=== PATIENT | male | born 1930 | race Caucasian/White ===

== ENCOUNTER 2017-04-13 20:09 | Observation (INO) | payer OTHER ==
[~2017-04-13] VITALS: Ht 185.4 cm; Wt 95.1 kg
[~2017-04-13 20:09] MED LIST: ACET325T14 PO; ALLO300T PO; AMLO5TAB4 PO; CITA40TA5 PO; CYAN10002 IM; DILT360C22 PO; FINA5TAB4 PO; FOLI-17 PO; GLIP2.5T3 PO; LORA-445 PO; LORA0.5T PO; Miscellaneous XX; PROP10TA PO; TAMS0.4C2 PO; TRIA1CAP3 PO; VIT1TABL32 PO; WARF2.5T73 PO
[2017-04-13] MEDS ORDERED: SODIUM CHLORIDE 0.9% 1,000ML IVBOLUS ONE (20:30)
[2017-04-13] MEDS ORDERED: ACETAMINOPHEN 325 MG TABLET PO ONE (20:30)
[2017-04-13] MEDS ORDERED: SODIUM CHLORIDE FLUSH 10ML SYR IVF ONE (20:30)
[2017-04-13] MEDS ORDERED: ONDANSETRON 2MG/ML, 2ML IVPush ONE (20:30)
[2017-04-13] MEDS ORDERED: ONDANSETRON 2MG/ML, 2ML ONE (20:43)
[2017-04-13] MEDS ORDERED: ACETAMINOPHEN 325 MG TABLET ONE (20:43)
[2017-04-13] MEDS ORDERED: PROP10TA PO (21:09)
[2017-04-13] MEDS ORDERED: ALPR0.25 PO (21:09)
[2017-04-13 21:10] LABS: HEMATOCRIT 31.2 % (39.2-51.8); HEMOGLOBIN 10.6 g/dL (13.7-18.0); WHITE BLOOD COUNT 9.6 x10^3/uL (3.4-10)
[2017-04-13] MEDS ORDERED: AMLO5TAB2 PO (21:10)
[2017-04-13 21:23] LABS: ASPARTATE AMINO TRANSFERASE 24 U/L (15-37); BLOOD UREA NITROGEN 25 mg/dL (7-18)
[2017-04-13 22:12] LABS: PATH.CAST-FLAG NOT PRESENT; SPERM-FLAG NOT PRESENT; SRC-FLAG NOT PRESENT; XTAL-FLAG NOT PRESENT; YLC-FLAG NOT PRESENT
[2017-04-13] MEDS ORDERED: CEFTRIAXONE PMX 1GM/50ML 50 ML ONE (22:35)
[2017-04-13] MEDS ORDERED: SODIUM CHLORIDE 0.9% 1,000 ML IV ONE (22:40)
[2017-04-13] MEDS ORDERED: ACETAMINOPHEN 325 MG TABLET PO PRN (23:00)
[2017-04-13] MEDS ORDERED: ONDANSETRON 2MG/ML, 2ML IVPush PRN (23:00)
[2017-04-13] MEDS ORDERED: PROMETHAZINE 25 MG/ML, 1ML IM PRN (23:00)
[2017-04-13] MEDS ORDERED: MORPHINE SULFATE 4 MG/ML, 1ML IVPush PRN (23:00)
[2017-04-13] MEDS ORDERED: SODIUM CHLORIDE FLUSH 10ML SYR IVF PRN (23:00)
[2017-04-13] MEDS ORDERED: CEFTRIAXONE PMX 1GM/50ML 50 ML IV ONE (23:00)
[2017-04-13 23:59] VITALS: BP 131/65
[2017-04-14] VITALS (8 sets, daily range): BP systolic 110–162; BP diastolic 54–76
[2017-04-14] MEDS ORDERED: HEPARIN 5,000 UNITS/ML, 1ML SQ ONE (08:30)
[2017-04-14] MEDS ORDERED: DOCUSATE 100 MG CAPSULE PO PRN (08:30)
[2017-04-14] MEDS: SODIUM CHLORIDE 0.9% 1,000 ML IV SCH ×2 (11:16→21:20)
[2017-04-14] MEDS: CEFTRIAXONE PMX 1GM/50ML 50 ML IV SCH (11:16)
[2017-04-14] MEDS ORDERED: WARFARIN 3 MG TABLET PO-COUM ONE (18:00)
[2017-04-14] MEDS ORDERED: FINASTERIDE 5 MG TABLET PO SCH (21:00)
[2017-04-14] MEDS: HEPARIN 5,000 UNITS/ML, 1ML SQ SCH (21:20)
[2017-04-15] MEDS: HEPARIN 5,000 UNITS/ML, 1ML SQ SCH ×2 (05:17→15:08)
[2017-04-15] MEDS: SODIUM CHLORIDE 0.9% 1,000 ML IV SCH (05:21)
[2017-04-15 05:22] VITALS: BP 126/65
[2017-04-15 05:41] LABS: HEMATOCRIT 28.5 % (39.2-51.8); HEMOGLOBIN 9.4 g/dL (13.7-18.0); WHITE BLOOD COUNT 5.9 x10^3/uL (3.4-10)
[2017-04-15 05:44] LABS: BLOOD UREA NITROGEN 15 mg/dL (7-18)
[2017-04-15 06:45] VITALS: BP 158/74
[2017-04-15 13:45] VITALS: BP 159/81
[2017-04-15] MEDS: CEFTRIAXONE PMX 1GM/50ML 50 ML IV SCH (15:11)
[2017-04-15] MEDS ORDERED: SULF1TAB24 PO (16:11)
[2017-04-15] MEDS ORDERED: WARFARIN 2 MG TABLET PO-COUM SCH (18:00)
== END 2017-04-15 16:25 | disposition home or self-care (01) ==
LOC: ED 21:36 → EDIP 22:40 → UNDOADMOB 23:19 → INTOOBSV 23:19 → EDIP 23:19 → 4NOR 23:25 → EDIP 23:25 → 4NOR 23:25 → DCLOUNGE 04-15 16:10
PROVIDERS: ADMIT Internal Medicine; ATTEND Internal Medicine
DX: N12 Tubulo-interstitial nephritis, not specified as acute or chronic (principal); D68.51 Activated protein C resistance; E11.9 Type 2 diabetes mellitus without complications; I48.2 Chronic atrial fibrillation; I10 Essential (primary) hypertension; I82.402 Acute embolism and thrombosis of unspecified deep veins of left lower extremity; N39.0 Urinary tract infection, site not specified; F03.90 Unspecified dementia, unspecified severity, without behavioral disturbance, psychotic disturbance, mood disturbance, and anxiety; H35.30 Unspecified macular degeneration; K21.9 Gastro-esophageal reflux disease without esophagitis; N40.0 Benign prostatic hyperplasia without lower urinary tract symptoms; Z82.49 Family history of ischemic heart disease and other diseases of the circulatory system; Z86.718 Personal history of other venous thrombosis and embolism
CPT/HCPCS: 36415; 71010; 80048; 80053; 81001; 83605; 84145; 85025; 85610; 87040; 87077; 87086; 87186; 96361; 96365; 96372; 96375; 99285; G0378; J0696; J1644; J7030